=== PATIENT | female | born 1970 | race Caucasian/White ===

== ENCOUNTER 2021-08-05 13:40 | Inpatient (IN) ==
[2021-08-05] MEDS ORDERED: Gadolinium Contrast Agent (WT Based) IV PRN (14:23)
[2021-08-05] MEDS ORDERED: GADOBUTROL 30 MMOL/30 ML VIAL IVP ONE (14:32)
[2021-08-05 15:27] LABS: Hemoglobin 14.2 g/dL (11.5-15.4); Mean Corpuscular HGB Conc 33.8 g/dL (31.6-35.5); Mean Corpuscular Hemoglobin 32.1 pg (28.0-33.3); Mean Platelet Volume 9.5 fL (9.4-12.4); Platelet Count 333 K/mcL (140-400); Red Blood Count 4.42 M/mcL (3.82-4.97); Red Cell Distribution Width 12.6 % (11.5-14.5); White Blood Count 11.9 K/mcL (4.3-11.1)
[2021-08-05 15:45] LABS: BUN/Creatinine Ratio 26 (6-26); Blood Urea Nitrogen 18 mg/dL (6-20); C-Reactive Protein 14 mg/L (Less than 10); Calcium 9.8 mg/dL (8.6-10.3); Carbon Dioxide 28 mEq/L (23-29); Chloride 103 mEq/L (98-107); Glucose 95 mg/dL (70-105); Osmolality,Calculated 290 (280-300); Potassium 3.5 mEq/L (3.5-5.1); Sodium 139 mEq/L (136-145); eGFR For African Americans > 60 (> 60); eGFR For Non-African Americans > 60 (> 60)
[2021-08-05 15:46] LABS: Troponin I 0.03 ng/mL (< 0.04)
[2021-08-05 15:48] LABS: INR 1.1; Prothrombin Time 12.2 Seconds (9.4-12.1)
[2021-08-05 15:50] LABS: Activated Partial Thrombo Time 39.3 Seconds (26.0-36.0)
[2021-08-05] MEDS ORDERED: Acetaminophen 325 MG TABLET PO PRN (16:56)
[2021-08-05] MEDS ORDERED: Naloxone 0.4 MG/ML INJ IVP PRN (16:56)
[2021-08-05] MEDS ORDERED: Ondansetron 4 MG/2 ML VIAL IVP PRN (16:56)
[2021-08-06] MEDS ORDERED: methylPREDNISolone 125 MG/2 ML VIAL IVP SCH (08:00)
[2021-08-06 08:25] LABS: Basophils % 0.2 %; Hematocrit 41.8 % (35.3-44.9); Hemoglobin 14.1 g/dL (11.5-15.4); Immature Granulocytes % 0.9 % (0-4); Lymphocytes % 5.3 %; Mean Corpuscular HGB Conc 33.7 g/dL (31.6-35.5); Mean Corpuscular Hemoglobin 31.8 pg (28.0-33.3); Mean Corpuscular Volume 94.1 fL (83.0-100.0); Mean Platelet Volume 9.6 fL (9.4-12.4); Monocytes % 0.8 %; Neutrophils # 17.3 K/mcL (1.6-8.9); Platelet Count 354 K/mcL (140-400); Red Blood Count 4.44 M/mcL (3.82-4.97); Red Cell Distribution Width 12.5 % (11.5-14.5); Segmented Neutrophils % 92.8 %
[2021-08-06 08:29] LABS: BUN/Creatinine Ratio 33 (6-26); Blood Urea Nitrogen 20 mg/dL (6-20); Calcium 9.9 mg/dL (8.6-10.3); Carbon Dioxide 24 mEq/L (23-29); Chloride 105 mEq/L (98-107); Glucose 154 mg/dL (70-105); Magnesium 2.2 mg/dL (1.6-2.6); Osmolality,Calculated 294 (280-300); Potassium 3.8 mEq/L (3.5-5.1); Sodium 139 mEq/L (136-145); eGFR For African Americans > 60 (> 60); eGFR For Non-African Americans > 60 (> 60)
[2021-08-06 08:30] LABS: Monocytes # 0.2 K/mcL (0.0-1.3); White Blood Count 18.6 K/mcL (4.3-11.1)
[2021-08-06] MEDS: *HR* Enoxaparin 40 MG/0.4 ML SYRINGE SQ SCH (09:00)
[2021-08-06] MEDS: methylPREDNISolone 250 MG in 0.9 % Sodium Chloride 50 ML IVPB SCH ×3 (10:04→21:38)
[2021-08-06] MEDS ORDERED: Gadolinium Contrast Agent (WT Based) IV PRN (10:22)
[2021-08-06] MEDS ORDERED: GADOBUTROL 30 MMOL/30 ML VIAL IVP ONE (11:09)
[2021-08-07] MEDS: methylPREDNISolone 250 MG in 0.9 % Sodium Chloride 50 ML IVPB SCH ×4 (01:16→20:28)
[2021-08-07] MEDS: Aspirin Enteric Coated 81 MG Tablet PO SCH (07:44)
[2021-08-07] MEDS: *HR* Enoxaparin 40 MG/0.4 ML SYRINGE SQ SCH (07:44)
[2021-08-07 08:20] LABS: BUN/Creatinine Ratio 31 (6-26); Blood Urea Nitrogen 22 mg/dL (6-20); Calcium 9.8 mg/dL (8.6-10.3); Carbon Dioxide 26 mEq/L (23-29); Chloride 107 mEq/L (98-107); Glucose 156 mg/dL (70-105); Magnesium 2.3 mg/dL (1.6-2.6); Osmolality,Calculated 299 (280-300); Potassium 3.5 mEq/L (3.5-5.1); Sodium 141 mEq/L (136-145); eGFR For African Americans > 60 (> 60); eGFR For Non-African Americans > 60 (> 60)
[2021-08-07 08:31] LABS: Basophils % 0.1 %; Hematocrit 40.7 % (35.3-44.9); Hemoglobin 13.2 g/dL (11.5-15.4); Immature Granulocytes % 1.2 % (0-4); Lymphocytes # 1.1 K/mcL (0.6-4.6); Lymphocytes % 4.2 %; Mean Corpuscular HGB Conc 32.4 g/dL (31.6-35.5); Mean Corpuscular Hemoglobin 31.5 pg (28.0-33.3); Mean Corpuscular Volume 97.1 fL (83.0-100.0); Monocytes # 0.5 K/mcL (0.0-1.3); Monocytes % 1.8 %; Neutrophils # 25.2 K/mcL (1.6-8.9); Platelet Count 352 K/mcL (140-400); Red Blood Count 4.19 M/mcL (3.82-4.97); Red Cell Distribution Width 13.1 % (11.5-14.5); Segmented Neutrophils % 92.7 %; White Blood Count 27.2 K/mcL (4.3-11.1)
[2021-08-07 12:52] LABS: Platelet Estimate Normal (Normal)
[2021-08-08] MEDS: methylPREDNISolone 250 MG in 0.9 % Sodium Chloride 50 ML IVPB SCH ×2 (01:56→08:18)
[2021-08-08 06:46] LABS: Basophils % 0.1 %; Lymphocytes % 4.8 %
[2021-08-08 06:47] LABS: Hematocrit 38.8 % (35.3-44.9); Hemoglobin 12.8 g/dL (11.5-15.4); Lymphocytes # 1.2 K/mcL (0.6-4.6); Mean Corpuscular Hemoglobin 31.8 pg (28.0-33.3); Mean Corpuscular Volume 96.5 fL (83.0-100.0); Mean Platelet Volume 9.9 fL (9.4-12.4); Monocytes # 0.4 K/mcL (0.0-1.3); Monocytes % 1.4 %; Neutrophils # 23.5 K/mcL (1.6-8.9); Platelet Count 346 K/mcL (140-400); Red Blood Count 4.02 M/mcL (3.82-4.97); Segmented Neutrophils % 91.7 %; White Blood Count 25.6 K/mcL (4.3-11.1)
[2021-08-08 06:55] LABS: BUN/Creatinine Ratio 36 (6-26); Blood Urea Nitrogen 24 mg/dL (6-20); Calcium 9.4 mg/dL (8.6-10.3); Carbon Dioxide 25 mEq/L (23-29); Chloride 107 mEq/L (98-107); Glucose 157 mg/dL (70-105); Magnesium 2.3 mg/dL (1.6-2.6); Osmolality,Calculated 301 (280-300); Potassium 3.4 mEq/L (3.5-5.1); Sodium 142 mEq/L (136-145); eGFR For African Americans > 60 (> 60); eGFR For Non-African Americans > 60 (> 60)
[2021-08-08 07:05] VITALS: BP 125/75; PULSE 65; TEMP 97.9; O2SAT 96
[2021-08-08 07:07] LABS: Thyroid Stimulating Hormone 0.077 mcIU/mL (0.340-5.600)
[2021-08-08] MEDS: Aspirin Enteric Coated 81 MG Tablet PO SCH (08:18)
[2021-08-08] MEDS: *HR* Enoxaparin 40 MG/0.4 ML SYRINGE SQ SCH (08:18)
[2021-08-08 08:26] LABS: Hypersegmented Neutrophils Present (Not Present); Platelet Estimate Normal (Normal)
[2021-08-09 08:29] LABS: ANA IgG by ELISA DETECTED (None Detected)
[2021-08-09 23:50] LABS: APTT (LE Anticoag) 51 sec (32-48); Diluted Russell Viper Venom 33 sec (33-44); LE Coag APTT Mixing 40 sec (32-48); PT (LE-Anticoag) 13.3 sec (12.0-15.5); Thrombin Time 16.9 sec (14.7-19.5)
[2021-08-10 16:05] LABS: ANA HEp-2 IgG IFA DETECTED (<1:80)
[2021-08-10 16:06] LABS: Anti Nuclear Ab Pattern HOMOGENEOUS
== END 2021-08-08 09:30 | disposition home or self-care (01) | DRG 123 ==
LOC: SUATTDRO → EMEROOARM 13:40 → 3BNU 13:40 → SUATTDRO 17:14 → 3BNU 17:55
PROVIDERS: ADMIT Family Medicine; ATTEND Pharmacist